=== PATIENT | female | born 1990 | race Caucasian/White ===

== ENCOUNTER 2023-03-21 18:08 | Outpatient (CLI) | payer BC ==
[2023-03-21] MEDS ORDERED: ONDANSETRON 4 MG/2 ML VIAL IVP PRN (18:22)
[2023-03-21] MEDS ORDERED: LACTATED RINGERS 1,000 ML IV SCH (18:30)
[2023-03-21 20:17] LABS: Appearance,Urine Cloudy (Clear); Bacteria,Urine Many /hpf; Bilirubin,Urine Negative (Negative); Blood,Urine Moderate (Negative); Color,Urine Yellow; Glucose,Urine (UA) Negative (Negative); Ketones,Urine Negative (Negative); Leukocyte Esterase,Urine Large (Negative); Mucus,Urine Many /hpf; Nitrite,Urine Negative (Negative); Protein,Urine 2+ (Negative); RBC,Urine >182 /hpf (0-5); Specific Gravity,Urine 1.017 (1.001-1.035); Squamous Epithelial Cell,Urine 10 /hpf (0-4); Urobilinogen,Urine <2.0 mg/dL (<2.0); WBC,Urine >182 /hpf (0-5)
[2023-03-22 02:39] VITALS: BP 109/60; PULSE 105; RESP 16; TEMP 98.2
--- NOTE | 2023-05-11 19:04 | P.MSEPDOC ---
Presenting Problems - Arrival Data Date of Arrival on Unit: 03/21/23 Time of Arrival on Unit: 18:08 Mode of Transport: Ambulatory - Complaint OB-Reason for Admission/Chief Complaint: Hyperemesis Medical History - Information : 9 Para: 3 Term: 3 : 0 Abortions: Spontaneous or Elective: 6 Number of Living Children: 3 - Gestational Age Gestational Age by MELLISSA (wks/days): 20 Weeks and 4 Days - History Comment: hyperemesis. with prior preg required pic line and hyper al until 30 weeks. Review of Systems - Review of Systems Constitutional: No problems Breast: No problems ENT: No problems Cardiovascular: No problems Respiratory: No problems Gastrointestinal: Constipation Genitourinary: No problems Musculoskeletal: No problems Neurological: No problems Skin: No problems Vital Signs - Temperature Temperature: 98.2 F Temperature Source: Oral - Pulse Right Pulse Rate: 105 Pulse Assessment Method: Automatic Cuff - Respirations Respiratory Rate: 16 Oxygen Delivery Method: Room Air O2 Sat by Pulse Oximetry: 98 - Blood Pressure Right Arm Blood Pressure: 109/60 Blood Pressure Mean: 76 Blood Pressure Source: Automatic Cuff Medical Screen Scoring - Assessment - Baby A Baseline FHR: 150 Physician Notification - Physician Notified Physician Notified Date: 03/21/23 Physician Notified Time: 18:13 Physician: Dr Brown New Order Received: Yes Maternal Triage Index - Maternal Triage Index Presenting for scheduled procedure w/no complaint: No - Stat/Priority 1 Stat Priority 1: No - Urgent/Priority 2 Urgent Priority 2: No - Prompt/Priority 3 Prompt Priority 3: No - Non-Urgent/Priority 4 Non-Urgent Priority 4: Yes Criteria Met for Priority 4: nausea vomiting Disposition - Disposition OB Disposition: Discharge to home Discharge Date: 03/21/23 Discharge Time: 21:45 I agree with the RN Medical Screening Exam: Yes Case reviewed; plan agreed upon as documented in EMR&OBIX.: Yes Diagnosis: RELATED CONDITIONS, UNSPECIFIED, SECOND TRIMESTER
== END 2023-03-21 21:45 | disposition home or self-care (01) ==
LOC: FBPOP 18:08
PROVIDERS: ATTEND Obstetrics & Gynecology Obstetrics
DX: O21.1 Hyperemesis gravidarum with metabolic disturbance (principal); Z3A.20 20 weeks gestation of pregnancy; Z88.8 Allergy status to other drugs, medicaments and biological substances
CPT/HCPCS: 99214; 96361; 96374; 81001; J2405

== ENCOUNTER 2023-07-05 13:17 | Emergency (ER) | payer BC ==
[2023-07-05] MEDS ORDERED: SODIUM CHLORIDE 0.9% 1,000 ML IV STA (13:46)
[2023-07-05 13:53] VITALS: RESP 18
--- NOTE | 2023-07-05 14:18 | ED ---
Arrhythmia/Palpitations HPI - General Chief Complaint: Arrhythmia/Palpitations Stated Complaint: Tachycardia, 35 weeks Time Seen by Provider: 07/05/23 13:41 Source: patient, RN notes reviewed, old records reviewed Mode of arrival: wheelchair Limitations: no limitations - History of Present Illness Initial Comments: This is a 32-year-old female to the emergency department for evaluation patient presents today for evaluation regards to elevated heart rate tachycardic heart rate possible arrhythmia. Patient was seen by OB and sent ER for further evaluation and management. Patient has elevated heart rate here in the ER was seen by mother baby prior to arrival. By mother baby about the emergency department today. Patient is 36 weeks MD Complaint: rapid heart beat, "heart racing", palpitations -: days(s) Context: occurred during rest, occurred during exertion Associated Symptoms: denies other symptoms Treatments Prior to Arrival: other (0) - Related Data Home Medications Medication Instructions Recorded Confirmed Acetaminophen Tab [Tylenol Tab] 500 mg PO Q6H PRN 07/05/23 07/10/23 Ferrous Sulfate [Feosol] 325 mg PO DAILY 07/05/23 07/10/23 [id number]-[id number] Acid 1 cap PO DAILY 07/05/23 07/10/23 [-U Capsule (formulary)] Allergies Allergy/AdvReac Type Severity Reaction Status Date / Time amoxicillin Allergy Rash/Hives Verified 07/10/23 11:27 metoclopramide [From Reglan] AdvReac Itching Verified 07/10/23 11:27 prochlorperazine AdvReac Itching Verified 07/10/23 11:27 [From Compazine] Review of Systems ROS Statement: Those systems with pertinent positive or pertinent negative responses have been documented in the HPI. ROS Other: All systems not noted in ROS Statement are negative. Past Medical History Past Medical History: No Reported History Additional Past Medical History / Comment(s): Hyperemesis with , PICC line clot. History of Any Multi-Drug Resistant Organisms: None Reported Past Surgical History: Cholecystectomy Past Anesthesia/Blood Transfusion Reactions: No Reported Reaction Past Psychological History: Anxiety Smoking Status: Never smoker Past Alcohol Use History: None Reported Past Drug Use History: None Reported General Exam Limitations: no limitations General appearance: alert, in no apparent distress Head exam: Present: atraumatic, normocephalic, normal inspection Eye exam: Present: normal appearance, PERRL, EOMI. Absent: scleral icterus, conjunctival injection, periorbital swelling ENT exam: Present: normal exam, mucous membranes moist Neck exam: Present: normal inspection. Absent: tenderness, meningismus, lymphadenopathy Respiratory exam: Present: normal lung sounds bilaterally. Absent: respiratory distress, wheezes, rales, rhonchi, stridor Cardiovascular Exam: Present: regular rate, normal rhythm, normal heart sounds. Absent: systolic murmur, diastolic murmur, rubs, gallop, clicks GI/Abdominal exam: Present: soft, normal bowel sounds. Absent: distended, tenderness, guarding, rebound, rigid Extremities exam: Present: normal inspection, full ROM, normal capillary refill. Absent: tenderness, pedal edema, joint swelling, calf tenderness Back exam: Present: normal inspection Neurological exam: Present: alert, oriented X3, CN II-XII intact Psychiatric exam: Present: normal affect, normal mood Skin exam: Present: warm, dry, intact, normal color. Absent: rash Course Vital Signs 07/05/23 07/05/23 07/05/23 13:32 13:35 18:35 Temperature 98.3 F 97.9 F 98.4 F Pulse Rate 101 H 98 97 Respiratory 20 18 18 Rate Blood Pressure 95/61 96/60 99/69 O2 Sat by Pulse 99 100 100 Oximetry - Reevaluation(s) Reevaluation #1: 07/05/23 15:38 Records reviewed Reevaluation #2: Patient symptoms are improving here in the ER Reevaluation #3: Patient informed of results and questions answered Reevaluation #4: 07/05/23 15:38 Was pt. sent in by a medical professional or institution (, PA, SALES AND RETAIL MANAGEMENT RECRUITER, urgent care, hospital, or snf...) When possible be specific @ -no Did you speak to anyone other than the patient for history (EMS, parent, family, police, friend...)? What history was obtained from this source @ -no Did you review nursing and triage notes (agree or disagree)? Why? @ -agree Are old charts reviewed (outside hosp., previous admission, EMS record, old EKG, old radiological studies, urgent care reports/EKG's, snf records)? Report findings @ -yes Differential Diagnosis (chest pain, altered mental status, abdominal pain women, abdominal pain men, vaginal bleeding, weakness, fever, dyspnea, syncope, headache, dizziness, GI bleed, back pain, seizure, CVA, palpatations, mental health, musculoskeletal)? @ -prior EKG interpreted by me (3pts min.). @ -yes X-rays interpreted by me (1pt min.). @ -no CT interpreted by me (1pt min.). @ -no U/S interpreted by me (1pt. min.). @ -yes What testing was considered but not performed or refused? (CT, X-rays, U/S, labs)? Why? @ -none What meds were considered but not given or refused? Why? @ -none Did you discuss the management of the patient with other professionals (professionals i.e. , PA, SALES AND RETAIL MANAGEMENT RECRUITER, lab, RT, psych nurse, protective services social worker, stock cutter, teacher, recreation officer, casework supervisor)? Give summary @ -no Was smoking cessation discussed for >3mins.? @ -no Was critical care preformed (if so, how long)? @ -no Were there social determinants of health that impacted care today? How? (Homelessness, low income, unemployed, alcoholism, drug addiction, transportation, low edu. Level, literacy, decrease access to med. care, half-way, rehab)? @ -none Was there de-escalation of care discussed even if they declined (Discuss DNR or withdrawal of care, Hospice)? DNR status @ -no What co-morbidities impacted this encounter? (DM, HTN, Smoking, COPD, CAD, Cancer, CVA, ARF, Chemo, Hep., AIDS, mental health diagnosis, sleep apnea, morbid obesity)? @ -none Was patient admitted / discharged? Hospital course, mention meds given and route, prescriptions, significant lab abnormalities, going to OR and other pertinent info. @ - 32 female to the emergency department for evaluation of tachycardia and pa lpitations. Significant anemia found here in the ER will follow-up as an outpatient for further evaluation, patient is currently 20+ weeks , will follow-up with OB on an outpatient for evaluation persistent anemia, patient feels improved here in the ER no acute distress and heart rate is improving, and patient can be discharged home Discharge Undiagnosed new problem with uncertain prognosis? @ -no Drug Therapy requiring intensive monitoring for toxicity (Heparin, Nitro, Insulin, Cardizem)? @ -no Were any procedures done? @ -no Diagnosis/symptom? @ -Anemia in Acute, or Chronic, or Acute on Chronic? @ -Acute Uncomplicated (without systemic symptoms) or Complicated (systemic symptoms)? @ -Complicated Side effects of treatment? @ -no Exacerbation, Progression, or Severe Exacerbation? @ -exacerbation Poses a threat to life or bodily function? How? (Chest pain, [place], [place], pneumonia, PE, COPD, DKA, ARF, appy, cholecystitis, CVA, Diverticulitis, Homicidal, Suicidal, threat to staff... and all critical care pts) @ -yes anemia and Reevaluation #5: 07/05/23 15:38 Differential Palpitations Ventricular arrhythmias, atrial arrhythmias, myocardial infarction, anemia, thyrotoxicosis, electrolyte imbalance, hypokalemia, pulmonary embolism, pulmonary disease, drugs, alcohol, anxiety, stress.... This is not meant to be an all-inclusive list. - Consultations Consultation #1: Spoke with patient's OB vice president of communications who recommends follow-up on an outpatient basis EKG Findings - EKG Comments: EKG Findings:: EKG is sinus 76 ID 166 QRS 83 QTc 413 - EKG Results: EKG: interpreted by [facility] Medical Decision Making - Medical Decision Making 32 female to the emergency department for evaluation of tachycardia and pal pitations. Significant anemia found here in the ER will follow-up as an outpatient for further evaluation, patient is currently 20+ weeks , will follow-up with OB on an outpatient for evaluation persistent anemia, patient feels improved here in the ER no acute distress and heart rate is improving, and patient can be discharged home - Lab Data Result diagrams: 07/05/23 14:18 07/05/23 14:18 Lab Results 07/05/23 07/05/23 07/05/23 Range/Units 14:18 14:18 14:18 WBC 6.7 (3.8-10.6) k/uL RBC 3.43 L (3.80-5.40) m/uL Hgb 8.6 L (11.4-16.0) gm/dL Hct 26.3 L (34.0-46.0) % MCV 76.8 L (80.0-100.0) fL MCH 25.2 (25.0-35.0) pg MCHC 32.8 (31.0-37.0) g/dL RDW 16.2 H (11.5-15.5) % Plt Count 132 L (150-450) k/uL MPV 9.2 Neutrophils % 70 % Lymphocytes % 22 % Monocytes % 5 % Eosinophils % 1 % Basophils % 0 % Neutrophils # 4.7 (1.3-7.7) k/uL Lymphocytes # 1.5 (1.0-4.8) k/uL Monocytes # 0.4 (0-1.0) k/uL Eosinophils # 0.1 (0-0.7) k/uL Basophils # 0.0 (0-0.2) k/uL Hypochromasia Marked Poikilocytosis Moderate Anisocytosis Slight Microcytosis Slight PT 9.6 (9.0-12.0) sec INR 0.9 (<1.2) APTT 20.1 L (22.0-30.0) sec Sodium (137-145) mmol/L Potassium (3.5-5.1) mmol/L Chloride (98-107) mmol/L Carbon Dioxide (22-30) mmol/L Anion Gap mmol/L BUN (7-17) mg/dL Creatinine (0.52-1.04) mg/dL Est GFR (CKD-EPI)AfAm (>60 ml/min/1.73 sqM) Est GFR (CKD-EPI)NonAf (>60 ml/min/1.73 sqM) Glucose (74-99) mg/dL Calcium (8.4-10.2) mg/dL Phosphorus (2.5-4.5) mg/dL Magnesium (1.6-2.3) mg/dL Total Bilirubin (0.2-1.3) mg/dL AST (14-36) U/L ALT (4-34) U/L Alkaline Phosphatase (38-126) U/L Troponin I (0.000-0.034) ng/mL NT-Pro-B Natriuret Pep pg/mL Total Protein (6.3-8.2) g/dL Albumin (3.5-5.0) g/dL TSH (0.465-4.680) mIU/L Urine Color Yellow Urine Appearance Cloudy H (Clear) Urine pH 6.5 (5.0-8.0) Ur Specific [place] 1.012 (1.001-1.035) Urine Protein Negative (Negative) Urine Glucose (UA) Negative (Negative) Urine Ketones Negative (Negative) Urine Blood Negative (Negative) Urine Nitrite Negative (Negative) Urine Bilirubin Negative (Negative) Urine Urobilinogen <2.0 (<2.0) mg/dL Ur Leukocyte Esterase Large H (Negative) Urine RBC <1 (0-5) /hpf Urine WBC 1 (0-5) /hpf Ur Squamous Epith Cells 7 H (0-4) /hpf Urine Bacteria Occasional H (None) /hpf Urine Mucus Rare H (None) /hpf Influenza Type A (PCR) (Not Detectd) Influenza Type B (PCR) (Not Detectd) RSV (PCR) (Not Detectd) SARS-CoV-2 (PCR) (Not Detectd) 07/05/23 07/05/23 07/05/23 Range/Units 14:18 14:18 14:50 WBC (3.8-10.6) k/uL RBC (3.80-5.40) m/uL Hgb (11.4-16.0) gm/dL Hct (34.0-46.0) % MCV (80.0-100.0) fL MCH (25.0-35.0) pg MCHC (31.0-37.0) g/dL RDW (11.5-15.5) % Plt Count (150-450) k/uL MPV Neutrophils % % Lymphocytes % % Monocytes % % Eosinophils % % Basophils % % Neutrophils # (1.3-7.7) k/uL Lymphocytes # (1.0-4.8) k/uL Monocytes # (0-1.0) k/uL Eosinophils # (0-0.7) k/uL Basophils # (0-0.2) k/uL Hypochromasia Poikilocytosis Anisocytosis Microcytosis PT (9.0-12.0) sec INR (<1.2) APTT (22.0-30.0) sec Sodium 133 L (137-145) mmol/L Potassium 3.2 L (3.5-5.1) mmol/L Chloride 109 H (98-107) mmol/L Carbon Dioxide 18 L (22-30) mmol/L Anion Gap 6 mmol/L BUN 4 L (7-17) mg/dL Creatinine 0.33 L (0.52-1.04) mg/dL Est GFR (CKD-EPI)AfAm >90 (>60 ml/min/1.73 sqM) Est GFR (CKD-EPI)NonAf >90 (>60 ml/min/1.73 sqM) Glucose 77 (74-99) mg/dL Calcium 7.3 L (8.4-10.2) mg/dL Phosphorus 3.6 (2.5-4.5) mg/dL Magnesium 1.5 L (1.6-2.3) mg/dL Total Bilirubin 0.4 (0.2-1.3) mg/dL AST 22 (14-36) U/L ALT 11 (4-34) U/L Alkaline Phosphatase 109 (38-126) U/L Troponin I <0.012 (0.000-0.034) ng/mL NT-Pro-B Natriuret Pep 36 pg/mL Total Protein 5.4 L (6.3-8.2) g/dL Albumin 2.6 L (3.5-5.0) g/dL TSH 2.500 (0.465-4.680) mIU/L Urine Color Urine Appearance (Clear) Urine pH (5.0-8.0) Ur Specific [place] (1.001-1.035) Urine Protein (Negative) Urine Glucose (UA) (Negative) Urine Ketones (Negative) Urine Blood (Negative) Urine Nitrite (Negative) Urine Bilirubin (Negative) Urine Urobilinogen (<2.0) mg/dL Ur Leukocyte Esterase (Negative) Urine RBC (0-5) /hpf Urine WBC (0-5) /hpf Ur Squamous Epith Cells (0-4) /hpf Urine Bacteria (None) /hpf Urine Mucus (None) /hpf Influenza Type A (PCR) Not Detected (Not Detectd) Influenza Type B (PCR) Not Detected (Not Detectd) RSV (PCR) Not Detected (Not Detectd) SARS-CoV-2 (PCR) Not Detected (Not Detectd) - EKG Data -: EKG Interpreted by Me - Radiology Data Radiology results: report reviewed ([facility] OB pelvis is negative for acute disease), image reviewed Disposition Clinical Impression: Palpitations, Anemia, Anxiety, Disposition: HOME SELF-CARE Condition: Fair Instructions (If sedation given, give patient instructions): Anemia (ED) Is patient prescribed a controlled substance at d/c from ED?: No Referrals: None,Stated [Primary Care Provider] - 1-2 days Time of Disposition: 17:00
[2023-07-05 15:02] LABS: Anisocytosis Slight; Basophils % (A) 0 %; Eosinophils # (A) 0.1 k/uL (0-0.7); Eosinophils % (A) 1 %; HCT 26.3 % (34.0-46.0); HGB 8.6 gm/dL (11.4-16.0); Hypochromasia Marked; Lymphocytes # (A) 1.5 k/uL (1.0-4.8); Lymphocytes % (A) 22 %; MCH 25.2 pg (25.0-35.0); MCHC 32.8 g/dL (31.0-37.0); MCV 76.8 fL (80.0-100.0); Mean Platelet Volume 9.2; Microcytosis Slight; Monocytes # (A) 0.4 k/uL (0-1.0); Monocytes % (A) 5 %; Neutrophils # (A) 4.7 k/uL (1.3-7.7); Neutrophils % (A) 70 %; Platelet Count 132 k/uL (150-450); Poikilocytosis Moderate; RBC 3.43 m/uL (3.80-5.40); RDW 16.2 % (11.5-15.5); WBC 6.7 k/uL (3.8-10.6)
[2023-07-05 15:06] LABS: INR 0.9 (<1.2); Prothrombin Time 9.6 sec (9.0-12.0)
[2023-07-05 15:12] LABS: Partial Thromboplastin Time 20.1 sec (22.0-30.0)
[2023-07-05 15:46] LABS: ALT 11 U/L (4-34); AST 22 U/L (14-36); African American GFR (CKD) >90 (>60 ml/min/1.73 sqM); Albumin 2.6 g/dL (3.5-5.0); Alkaline Phosphatase 109 U/L (38-126); Anion Gap 6 mmol/L; Blood Urea Nitrogen 4 mg/dL (7-17); Calcium 7.3 mg/dL (8.4-10.2); Carbon Dioxide 18 mmol/L (22-30); Chloride 109 mmol/L (98-107); Glucose 77 mg/dL (74-99); Magnesium 1.5 mg/dL (1.6-2.3); Non-African American GFR(CKD) >90 (>60 ml/min/1.73 sqM); Phosphorus 3.6 mg/dL (2.5-4.5); Potassium 3.2 mmol/L (3.5-5.1); Sodium 133 mmol/L (137-145); Total Bilirubin 0.4 mg/dL (0.2-1.3); Total Protein 5.4 g/dL (6.3-8.2)
[2023-07-05 15:54] LABS: Appearance,Urine Cloudy (Clear); Bacteria,Urine Occasional /hpf; Bilirubin,Urine Negative (Negative); Blood,Urine Negative (Negative); Color,Urine Yellow; Glucose,Urine (UA) Negative (Negative); Ketones,Urine Negative (Negative); Leukocyte Esterase,Urine Large (Negative); Mucus,Urine Rare /hpf; Nitrite,Urine Negative (Negative); PH, Urine 6.5 (5.0-8.0); Protein,Urine Negative (Negative); RBC,Urine <1 /hpf (0-5); Specific Gravity,Urine 1.012 (1.001-1.035); Squamous Epithelial Cell,Urine 7 /hpf (0-4); Urobilinogen,Urine <2.0 mg/dL (<2.0); WBC,Urine 1 /hpf (0-5)
[2023-07-05 15:55] LABS: NT-Pro-B-Type Natriuretic Pept 36 pg/mL
[2023-07-05] MEDS ORDERED: POTASSIUM BICARBONATE/CIT AC 20 MEQ TABLET.EFF PO STA (17:03)
[2023-07-05] MEDS ORDERED: MAGNESIUM OXIDE 400 MG TAB PO STA ×2 (17:03)
--- NOTE | 2023-07-05 17:15 | US ---
EXAMINATION TYPE: US OB >= 14 wk fetus DATE OF EXAM: 07/05/2023 COMPARISON: None CLINICAL INDICATION: Female, 32 years old with history of pain; low hemoglobin TECHNIQUE: Transabdominal (TA) GESTATIONAL AGE / DATING Physician Established: (35 weeks/4 days) EDC: 08/05/2023 Dates by LMP: (35 weeks/4 days) EDC: 08/05/2023 Dates by First Scan: No previous this is first scan Dates by Current Scan: (36 weeks/2 days) EDC: 07/31/2023 SURVEY IUP: Single PLACENTA: Fundal PREVIA: No Previa ION: 14.88 cm Normal CERVICAL LENGTH (transabdominal: norm > 3.0cm): 3.9 cm BIOMETRY PRESENTATION: Vertex LIE: Longitudinal BPD: 9.34 cm 38 weeks / 0 days HC: 32.82 cm 37 weeks / 2 days AC: 30.67 cm 34 weeks / 4 days FL: 7.09 cm 36 weeks / 2 days ESTIMATED WEIGHT IN GRAMS: 2748 grams ESTIMATED WEIGHT IN LBS/OZ: 6 lbs. 1 oz. WEIGHT PERCENTAGE BASED ON ESTABLISHED DATES: 53.2% HC/AC: 1.1 Normal FL/AC: 23.12 Normal HEART RATE: 129 bpm RHYTHM: Normal IMPRESSION: 1. Estimated weight of 2748 g based on current measurements. This is within the 53rd percentile . 2. Cardiac activity measures 129 bpm. 3. Estimated age based on current ultrasound measurements is 36 weeks 2 days gestation. Correla te this with the physician established dating of 35 weeks 4 days.
[2023-07-05] MEDS ORDERED: POTASSIUM BICARBONATE/CIT AC 20 MEQ TABLET.EFF PO ONE (18:00)
[2023-07-05 18:44] VITALS: BP 99/69; PULSE 97; TEMP 98.4
== END 2023-07-05 18:44 | disposition home or self-care (01) ==
LOC: EC 13:17
DX: O99.013 Anemia complicating pregnancy, third trimester (principal); O99.343 Other mental disorders complicating pregnancy, third trimester; D64.9 Anemia, unspecified; R00.2 Palpitations; F41.9 Anxiety disorder, unspecified; Z88.8 Allergy status to other drugs, medicaments and biological substances; Z88.0 Allergy status to penicillin; Z20.822 Contact with and (suspected) exposure to COVID-19; Z3A.36 36 weeks gestation of pregnancy
CPT/HCPCS: 36415; 76805; 80053; 81001; 83735; 83880; 84100; 84443; 84484; 85025; 85610; 85730; 87636; 93005; 96360; 99285

== ENCOUNTER 2023-08-03 05:53 | Inpatient (IN) | payer BC ==
[2023-08-03] MEDS ORDERED: TRANEXAMIC 1,000 MG/100ML-NACL 1,000 MG in EMPTY BAG 1 BAG IV PRN (06:09)
[2023-08-03] MEDS ORDERED: METHYLERGONOVINE 0.2 MG/ML 1 ML AMP IM PRN (06:09)
[2023-08-03] MEDS ORDERED: TERBUTALINE 1 MG/ML VIAL SQ PRN (06:09)
[2023-08-03] MEDS ORDERED: miSOPROStoL 200 MCG TAB PO PRN (06:09)
[2023-08-03] MEDS ORDERED: LIDOCAINE 0.5% (PF) 5 MG/ML (50 ML SDV) SQ PRN (06:09)
[2023-08-03] MEDS ORDERED: OXYTOCIN 10 UNIT/ML 1 ML VIAL IM PRN (06:09)
[2023-08-03] MEDS: LACTATED RINGERS 1,000 ML IV SCH ×2 (06:09→11:11)
[2023-08-03] MEDS ORDERED: CARBOPROST TROMETHAMINE 250 MCG/ML 1 ML AMP IM PRN (06:09)
[2023-08-03] MEDS ORDERED: OXYTOCIN 30 UNITS/500 ML NS 30 UNIT in SALINE 1 500ML.BAG IV SCH ×2 (06:15→13:45)
[2023-08-03 06:23] LABS: Anisocytosis Slight; Basophils % (A) 0 %; Eosinophils # (A) 0.1 k/uL (0-0.7); Eosinophils % (A) 1 %; HCT 32.7 % (34.0-46.0); HGB 10.3 gm/dL (11.4-16.0); Hypochromasia Marked; Lymphocytes % (A) 23 %; MCHC 31.5 g/dL (31.0-37.0); MCV 76.4 fL (80.0-100.0); Mean Platelet Volume 8.8; Microcytosis Slight; Monocytes # (A) 0.4 k/uL (0-1.0); Monocytes % (A) 5 %; Neutrophils # (A) 5.8 k/uL (1.3-7.7); Neutrophils % (A) 69 %; Platelet Count 227 k/uL (150-450); Poikilocytosis Slight; RBC 4.28 m/uL (3.80-5.40); RDW 18.2 % (11.5-15.5); WBC 8.4 k/uL (3.8-10.6)
--- NOTE | 2023-08-03 08:47 | P.HPOB ---
History of Present Illness H&P Date: 08/03/23 Chief Complaint: Elective induction of labor Ms. Mireles is a 32 year old at 40 weeks and 0 days with EDC of 08/03/2023 by LMP consistent with 20 week US who presents for induction of labor for post-dates. The was complicated by hyperemesis gravidarum. In a p rior , the patient required a PICC line (2016) for IV hydration and had a deep vein thrombus in proximal shoulder. For that , she was on lovenox. The has been otherwise uncomplicated. Obstetric history: 3 full-term vaginal deliveries, no complications. 6 SABs. Maternal serologies: blood type A positive, antibody negative, rubella immune, VDRL non-reactive, HBsAg negative, HIV negative, gonorrhea negative, chlamydia negative, 1 hour GTT within normal limits, GBS negative. Past medical history: upper extremity provoked DVT (as above) Surgical history: Cholecystectomy Past Medical History Past Medical History: No Reported History Additional Past Medical History / Comment(s): Hyperemesis with , PICC line clot. History of Any Multi-Drug Resistant Organisms: None Reported Past Surgical History: Cholecystectomy Past Anesthesia/Blood Transfusion Reactions: No Reported Reaction Past Psychological History: Anxiety Smoking Status: Never smoker Past Alcohol Use History: None Reported Past Drug Use History: None Reported - Past Family History Mother Family Medical History: No Reported History Medications and Allergies Home Medications Medication Instructions Recorded Confirmed Type Osl-[id number]-Fmckv Acid 1 cap PO DAILY 07/05/23 07/10/23 History [-U Capsule (formulary)] Allergies Allergy/AdvReac Type Severity Reaction Status Date / Time amoxicillin Allergy Rash/Hives Verified 08/03/23 06:08 metoclopramide [From Reglan] AdvReac Itching Verified 08/03/23 06:08 prochlorperazine AdvReac Itching Verified 08/03/23 06:08 [From Compazine] Exam Intake and Output 08/02/23 08/03/23 08/03/23 22:59 06:59 14:59 Other: # Voids 1 Weight 58.06 kg 58.06 kg [place] physical exam is performed. The patient is a healthy-appearing in no apparent distress. Breathing is non-labored. Abdomen is gravid and non- tender. Cervical exam is 3 cm, 70% effaced, -3 station. AROM is undertaken revealing clear fluid. Extremities are non-tender and non-edematous. heart tones are reassuring and reactive. Of note there was a period upon arrival minimal variability and a wandering baseline upon arrival that has now resolved. Tocometer is not graphing any contractions at this time. Results Result Diagrams: 08/03/23 06:10 Abnormal Lab Results - Last 24 Hours (Table) 08/03/23 Range/Units 06:10 Hgb 10.3 L (11.4-16.0) gm/dL Hct 32.7 L (34.0-46.0) % MCV 76.4 L (80.0-100.0) fL MCH 24.0 L (25.0-35.0) pg RDW 18.2 H (11.5-15.5) % Assessment and Plan Assessment: 32 year old at 40 weeks presenting for induction of labor Plan: Admit, NPO, mIVF, pitocin per protocol, s/p AROM, epidural prn, continuous EFM and tocometer, close monitoring of patient. Time with Patient: Less than 30
[2023-08-03] MEDS ORDERED: SODIUM CHLORIDE 0.9% 250 ML BAG ONE (12:13)
[2023-08-03] MEDS ORDERED: ROPIVACAINE 5 MG/ML 30 ML VIAL ONE (12:13)
[2023-08-03] MEDS ORDERED: fentaNYL (PF) 50 MCG/ML 5 ML AMP ONE (12:13)
--- NOTE | 2023-08-03 13:33 | P.PROBDLV ---
Vaginal Delivery Note - . Vaginal Delivery Note: DATE OF SERVICE: 08/03/2023 PROCEDURE: Vacuum Assisted Vaginal Delivery with Hemorrhage ATTENDING: Dr. Patricia Rob MD ESTIMATED BLOOD LOSS: 500 mL FINDINGS: VFI, Apgars 9/9. Weight still pending at the time of this dictation. PROCEDURE: Ms. Mireles is a 32 year old at 40 weeks presenting to labor and delivery for induction of labor for post-dates. The has been complicated by hyperemesis gravidarum. For further details, please review the admitting H&P. Pitocin was started per protocol. AROM was undertaken at 823 revealing clear fluid. The patient received epidural anesthesia per her request. The patient was completely dilated at 1237. The patient pushed effectively, however there were deep variable decelerations to the 70s with every contraction. Because of this, a vacuum assisted vaginal delivery was recommended to the patient. The risks of advanced degree laceration, scalp hematoma, and intracranial hematoma were discussed with the patient. The patient agreed to proceed. vacuum delivery for the baby. The head was at +3 station. The vacuum was placed and the correct placement in front of the posterior fontanelle was confirmed digitally. With the patient's next contraction, the vacuum was inflated and a gentle downward pressure was used to assist with brining the baby's head to a +3 station. The head was +4 station and the vacuum was removed. The head was delivered without difficulty over an intact perineum. There was no nuchal cord. Shoulders followed by body were delivered without difficulty. A viable female was fully delivered at 1316. The baby's mouth and nose were bulb suctioned. The cord was clamped x2 and cut. The infant was placed on maternal abdomen. Placenta was delivered whole with gentle cord traction at 1319. Oxytocin was started to facilitate uterine tone. Uterine fundus was found to be firm and below the umbilicus upon fundal massage. However, bleeding was brisk. The decision was made to give 0.2 mg of IM Methergine. After administration, bleeding was minimal and fundus was firm. Thorough examination of the cervix, vagina, periurethral area, and perineum revealed no lacerations. The patient is stable and allowed to begin the bonding process. Patient stable .
[2023-08-03] MEDS ORDERED: ZOLPIDEM 5 MG TAB PO PRN (13:34)
[2023-08-03] MEDS ORDERED: BENZOCAINE/MENTHOL SPRAY 1 GM/SPRAY AEROSOL TOPICAL PRN (13:34)
[2023-08-03] MEDS ORDERED: SIMETHICONE 80 MG CHEWABLE PO PRN (13:34)
[2023-08-03] MEDS ORDERED: HYDROCORTISONE 2.5% RECTAL CREAM 30 GM TUBE RECTAL PRN (13:34)
[2023-08-03] MEDS ORDERED: diphenhydrAMINE 50 MG/ML 1 ML VIAL IVP PRN ×2 (13:34)
[2023-08-03] MEDS ORDERED: diphenhydrAMINE 50 MG CAP PO PRN (13:34)
[2023-08-03] MEDS ORDERED: LANOLIN CREAM 5 GM TUBE TOPICAL PRN (13:34)
[2023-08-03] MEDS ORDERED: diphenhydrAMINE 25 MG CAP PO PRN (13:34)
[2023-08-03 16:09] VITALS: RESP 16
[2023-08-03] MEDS: IBUPROFEN 600 MG TAB PO PRN (19:26)
[2023-08-03] MEDS: ACETAMINOPHEN TAB 325 MG TAB PO PRN (23:53)
[2023-08-04] MEDS: IBUPROFEN 600 MG TAB PO PRN ×2 (04:37→12:09)
[2023-08-04 05:57] LABS: Anisocytosis Slight; Basophils % (A) 0 %; Eosinophils # (A) 0.1 k/uL (0-0.7); Eosinophils % (A) 1 %; HCT 29.3 % (34.0-46.0); HGB 9.1 gm/dL (11.4-16.0); Hypochromasia Moderate; Lymphocytes % (A) 19 %; MCH 23.7 pg (25.0-35.0); MCV 76.4 fL (80.0-100.0); Mean Platelet Volume 8.2; Microcytosis Slight; Monocytes # (A) 0.7 k/uL (0-1.0); Monocytes % (A) 7 %; Neutrophils # (A) 7.5 k/uL (1.3-7.7); Neutrophils % (A) 72 %; Platelet Count 201 k/uL (150-450); Poikilocytosis Slight; RBC 3.84 m/uL (3.80-5.40); RDW 18.1 % (11.5-15.5); WBC 10.3 k/uL (3.8-10.6)
[2023-08-04 08:05] VITALS: BP 93/56; PULSE 89; TEMP 98.3
[2023-08-04] MEDS: ACETAMINOPHEN TAB 325 MG TAB PO PRN (08:07)
[2023-08-04] MEDS: SENNOSIDES-DOCUSATE SODIUM 1 EACH TAB PO SCH ×2 (08:07→12:10)
--- NOTE | 2023-08-07 15:40 | CDI ---
Documentation Clarification Form Date: 08/07/2023 03:26:12 PM From: Chata Crews Admit Date: 08/03/2023 05:53:00 AM Patient Name: Sarahi Mireles Visit Number: [id number] Discharge Date: 08/04/2023 02:15:00 PM ATTENTION: The Clinical Documentation Specialists (CDI) and [facility] Coding Staff appreciate your assistance in clarifying documentation. Please respond to the clarification below the line at the bottom and electronically sign. The CDI & [facility] Coding staff will review the response and follow-up if needed. Please note: Queries are made part of the Legal Health Record. If you have any questions, please contact the author of this message via ITS. Dr. Patricia Rob Your patient has a hemoglobin/hematocrit level of 10.3 and 32.7 on 08/03/23, and 9.1 and 29.3 on 08/04. Please clarify if there is an additional diagnosis and/or clinical significance related to these lab values. History/Risk Factors: patient is a 32 year old who presented for induction of labor for post dates Clinical indicators: patient underwent induction of labor with Pitocin and AROM. She received an epidural, and was completely dilated. Patient pushed effectively, however there were deep variable decelerations, so a vacuum assisted vaginal delivery was performed. Oxytocin was started to facilitate uterine tone, however brisk bleeding was encountered. 0.2 mg of IM Methergine was administered. She was diagnosed with hemorrhage. Treatment: oxytocin, 0.2 mg of IM methergine Is there an additional diagnosis and/or clinical significance related to the above lab result/information: [ X] Acute blood loss anemia [ ] Acute on chronic blood loss anemia [ ] No additional diagnosis/Not clinically significant [ ] Unable to determine [ X] Other, please specify: hemorrhage MTDD
--- NOTE | 2023-08-08 20:23 | P.DS ---
Providers Date of admission: 08/03/23 05:53 Expected date of discharge: 08/04/23 Attending physician: Patricia Rob MD Primary care physician: Stated None Hospital Course: This is a 32 year old now PPD#1 s/p normal vaginal delivery. She is doing well this morning and desires discharge home. The patient is doing well this morning and had no acute events overnight. She has no complaints this morning. She reports minimal lochia, passing flatus, voiding without difficulty, ambulating, and eating/drinking without nausea or vomiting. Infant doing well at bedside, nursing well. She denies chest pain, shortness of breathing, fevers, or chills overnight. She denies pain or swelling in the legs. restrictions are reviewed with the patient including pelvic rest for 6 weeks. The patient is encouraged to call the office if she experiences any heavy bleeding, foul-smelling discharge, breast complaints, or any if she has any other concerns. She will follow up in the office with Dr. Merrill in 6 weeks for exam. All questions are answered. Assessment: 32 year old now PPD#1 s/p normal vaginal delivery Patient Condition at Discharge: Good Plan - Discharge Summary New Discharge Prescriptions: No Action Xvy-Hndn-Nxlal Acid [-U Capsule (formulary)] 1 cap PO DAILY Discharge Medication List Dfk-Stmc-Ezvzo Acid [-U Capsule (formulary)] 1 cap PO DAILY 07/05/23 [History]
== END 2023-08-04 14:15 | disposition home or self-care (01) | DRG 806 ==
LOC: 4FBP 05:53
PROVIDERS: ADMIT Obstetrics & Gynecology; ATTEND Obstetrics & Gynecology
PROC: 10907ZC Drainage of Amniotic Fluid, Therapeutic from Products of Conception, Via Natural or Artificial Opening (ICD-10-PCS; principal; 2023-08-03)
PROC: 10D07Z6 Extraction of Products of Conception, Vacuum, Via Natural or Artificial Opening (ICD-10-PCS; principal; 2023-08-03)
PROC: 3E033VJ Introduction of Other Hormone into Peripheral Vein, Percutaneous Approach (ICD-10-PCS; principal; 2023-08-03)
DX: O48.0 Post-term pregnancy (principal); D62 Acute posthemorrhagic anemia; O72.1 Other immediate postpartum hemorrhage; O21.0 Mild hyperemesis gravidarum; O99.02 Anemia complicating childbirth; O99.344 Other mental disorders complicating childbirth; O76 Abnormality in fetal heart rate and rhythm complicating labor and delivery; F41.9 Anxiety disorder, unspecified; Z86.718 Personal history of other venous thrombosis and embolism; Z88.0 Allergy status to penicillin; Z88.8 Allergy status to other drugs, medicaments and biological substances; Z88.6 Allergy status to analgesic agent; Z28.310 Unvaccinated for COVID-19; Z3A.40 40 weeks gestation of pregnancy; Z37.0 Single live birth
CPT/HCPCS: 85025; 86850; 86900; 86901

== ENCOUNTER 2025-02-24 06:00 | Inpatient (IN) | payer BC ==
[2025-02-24] MEDS ORDERED: LIDOCAINE 0.5% (PF) 5 MG/ML (50 ML SDV) SQ PRN (06:18)
[2025-02-24] MEDS ORDERED: OXYTOCIN 10 UNIT/ML 1 ML VIAL IM PRN (06:18)
[2025-02-24] MEDS ORDERED: miSOPROStoL 200 MCG TAB RECTAL PRN (06:18)
[2025-02-24] MEDS ORDERED: CARBOPROST TROMETHAMINE 250 MCG/ML 1 ML AMP IM PRN (06:18)
[2025-02-24] MEDS ORDERED: miSOPROStoL 200 MCG TAB PO PRN (06:18)
[2025-02-24] MEDS ORDERED: TRANEXAMIC 1,000 MG/100ML-NACL 1,000 MG in EMPTY BAG 1 BAG IV PRN (06:18)
[2025-02-24] MEDS ORDERED: TERBUTALINE 1 MG/ML VIAL SQ PRN (06:18)
[2025-02-24] MEDS ORDERED: METHYLERGONOVINE 0.2 MG/ML 1 ML AMP IM PRN (06:18)
[2025-02-24] MEDS: OXYTOCIN 30 UNITS/500 ML NS 30 UNIT in SALINE 1 500ML.BAG IV SCH (06:48)
[2025-02-24] MEDS: LACTATED RINGERS 1,000 ML IV SCH (06:48)
[2025-02-24 07:25] LABS: Anisocytosis Slight; Basophils % (A) 0 %; Eosinophils # (A) 0.1 k/uL (0-0.7); Eosinophils % (A) 1 %; HCT 31.3 % (34.0-46.0); HGB 9.7 gm/dL (11.4-16.0); Hypochromasia Marked; Lymphocytes # (A) 1.6 k/uL (1.0-4.8); Lymphocytes % (A) 16 %; MCV 74.4 fL (80.0-100.0); Mean Platelet Volume 7.9; Microcytosis Slight; Monocytes # (A) 0.5 k/uL (0-1.0); Monocytes % (A) 5 %; Neutrophils # (A) 7.8 k/uL (1.3-7.7); Neutrophils % (A) 77 %; Platelet Count 223 k/uL (150-450); Poikilocytosis Slight; RBC 4.21 m/uL (3.80-5.40); RDW 17.1 % (11.5-15.5); WBC 10.1 k/uL (3.8-10.6)
[2025-02-24] MEDS ORDERED: BUTORPHANOL 1 MG/ML 1 ML VIAL IV PRN (09:34)
--- NOTE | 2025-02-24 09:38 | P.HPOB ---
History of Present Illness H&P Date: 02/24/25 Chief Complaint: 39 and 1 sevenths weeks, elective induction Patient is a 34-year-old 11 para 4-0-6-4 admitted at 39 and 1 sevenths weeks as established by last menstrual period and confirmed by 9-week ultrasound. She is admitted for elective induction of labor with all signs reassuring, category 1 heart rate tracing. Her has been uncomplicated and group B strep status is negative. Obstetrical history: 11 para 4-0-6-4 with 4 term vaginal deliveries without complications though she did have hemorrhage following her last delivery. Current statistics are listed in history of present illness. EDC of 03/02/2025 was established by last menstrual period and confirmed by 9-week ultrasound. Laboratory workup demonstrates a blood type of A+ with a negative antibody screen. Rubella status is immune. The remainder of the laboratory workup was within normal limits. 1 hour Glucola and second trimester Glucola were both within normal limits. Group B strep status is negative. Gynecologic history: Unremarkable with no history of any infections to include STDs. Review of Systems Review of systems is confined to history of present illness. Past Medical History Past Medical History: No Reported History Additional Past Medical History / Comment(s): Hyperemesis with , PICC line clot. History of Any Multi-Drug Resistant Organisms: None Reported Past Surgical History: Cholecystectomy Past Anesthesia/Blood Transfusion Reactions: No Reported Reaction Past Psychological History: Anxiety Smoking Status: Never smoker Past Alcohol Use History: None Reported Past Drug Use History: None Reported - Past Family History Mother Family Medical History: No Reported History Medications and Allergies Allergies Allergy/AdvReac Type Severity Reaction Status Date / Time amoxicillin Allergy Rash/Hives Verified 09/28/24 13:52 metoclopramide [From Reglan] AdvReac Itching Verified 09/28/24 13:52 prochlorperazine AdvReac Itching Verified 09/28/24 13:52 [From Compazine] Exam Vital Signs Temp Pulse Resp BP Pulse Ox 02/24/25 06:16 96.7 F L 111 H 16 111/69 98 Intake and Output 02/23/25 02/24/25 02/24/25 22:59 06:59 14:59 Other: Weight 77.111 kg In general, this is a well-developed, well-nourished white female in no acute distress. Her heart has regular rhythm and rate without murmur. Her lungs clear to auscultation bilaterally in all saldana. Her abdomen is gravid, nondistended, has normal active bowel sounds, soft, nontender, and without any palpable masses aside from the uterine fundus. Her extremities are without any cyanosis, clubbing, or significant edema and are nontender to palpation bilaterally. Digital cervical examination demonstrates her cervix to be 3+ centimeters dilated, 50% effaced, with the vertex in presentation at -2 station. Artificial rupture of membranes is carried out demonstrating clear fluid. Results Result Diagrams: 02/24/25 06:18 Abnormal Lab Results - Last 24 Hours (Table) 02/24/25 Range/Units 06:18 Hgb 9.7 L (11.4-16.0) gm/dL Hct 31.3 L (34.0-46.0) % MCV 74.4 L (80.0-100.0) fL MCH 23.0 L (25.0-35.0) pg RDW 17.1 H (11.5-15.5) % Neutrophils # 7.8 H (1.3-7.7) k/uL Assessment and Plan (1) Term Current Visit: Yes Status: Acute Code(s): Z34.90 - ENCNTR FOR SUPRVSN OF NORMAL , UNSP, UNSP TRIMESTER SNOMED Code(s): 63377187 Plan: Patient has been admitted for elective induction of labor. Pitocin augmentation has been started and she has undergone artificial rupture of membranes. She will have close maternal and surveillance and expectant management will be practiced. She is a good candidate for either IV or epidural analgesia, whichever she may choose.
[2025-02-24] MEDS ORDERED: ROPIVACAINE 5 MG/ML 30 ML VIAL ONE (10:28)
[2025-02-24] MEDS ORDERED: fentaNYL (PF) 50 MCG/ML 5 ML AMP ONE (10:28)
[2025-02-24] MEDS ORDERED: SODIUM CHLORIDE 0.9% 250 ML BAG ONE (10:28)
[2025-02-24] MEDS ORDERED: diphenhydrAMINE 25 MG CAP PO PRN (13:34)
[2025-02-24] MEDS ORDERED: ZOLPIDEM 5 MG TAB PO PRN (13:34)
[2025-02-24] MEDS ORDERED: LANOLIN CREAM 1 GM TUBE TOPICAL PRN (13:34)
[2025-02-24] MEDS ORDERED: diphenhydrAMINE 50 MG CAP PO PRN (13:34)
[2025-02-24] MEDS ORDERED: diphenhydrAMINE 50 MG/ML 1 ML VIAL IVP PRN (13:34)
[2025-02-24] MEDS ORDERED: HYDROCORTISONE 2.5% RECTAL CREAM 30 GM TUBE RECTAL PRN (13:34)
[2025-02-24] MEDS ORDERED: SIMETHICONE 80 MG CHEWABLE PO PRN (13:34)
--- NOTE | 2025-02-24 13:38 | P.PROBDLV ---
Vaginal Delivery Note - . Vaginal Delivery Note: The patient is a 34-year-old 11 para 4-0-6-4 admitted at 39 and 1 sevenths weeks by good dating parameters. She is admitted for elective induction of labor with all signs reassuring, category 1 heart rate tracing. Her has been entirely uncomplicated and group B strep status is negative. On labor and delivery, she had Pitocin started followed by artificial rupture of membranes. She made progress to the active phase of labor and had an epidural catheter placed for analgesia. She progressed through the active phase of labor relatively quickly to complete and then pushed over the course of approximately 3-4 contractions to a normal spontaneous vaginal delivery of a viable 7 pound 6 ounce baby boy with Apgars of 9 at 1 minute and 9 at 5 minutes delivered in the right occiput anterior position. There was a loose nuchal cord x 1 which was reduced on the perineum. The placenta was delivered spontaneously, intact, grossly normal with a grossly normal, centrally inserted three-vessel cord. There were no significant lacerations of perineum, vagina, or cervix. Estimated blood loss for the case was approximately 150 mL. There were no complications. All sponge, instrument, and needle counts were correct. Both mother and infant are resting comfortably in recovery.
[2025-02-24] MEDS: BENZOCAINE/MENTHOL SPRAY 1 GM/SPRAY AEROSOL TOPICAL PRN (13:41)
[2025-02-24] MEDS ORDERED: OXYTOCIN 30 UNITS/500 ML NS 30 UNIT in SALINE 1 500ML.BAG IV SCH (13:45)
[2025-02-24] MEDS: diphenhydrAMINE 50 MG/ML 1 ML VIAL IVP PRN (14:41)
[2025-02-24] MEDS: IBUPROFEN 800 MG TAB PO PRN (14:41)
[2025-02-24] MEDS: SENNOSIDES-DOCUSATE SODIUM 1 EACH TAB PO SCH (19:45)
[2025-02-24] MEDS: ACETAMINOPHEN TAB 500 MG TAB PO PRN (19:45)
[2025-02-25 06:15] LABS: Basophils # (A) 0.02 10*3/uL (0.00-0.10); Basophils % (A) 0.2 %; Eosinophils # (A) 0.07 10*3/uL (0.04-0.35); Eosinophils % (A) 0.7 %; HCT 28.3 % (37.2-46.3); HGB 8.7 g/dL (12.0-15.0); Lymphocytes # (A) 2.38 10*3/uL (0.90-5.00); Lymphocytes % (A) 25.4 %; MCH 23.3 pg (27.0-32.0); MCHC 30.7 g/dL (32.0-37.0); MCV 75.9 fL (80.0-97.0); Mean Platelet Volume 10.3 fL (9.5-12.2); Monocytes # (A) 0.57 10*3/uL (0.20-1.00); Monocytes % (A) 6.1 %; Neutrophils # (A) 6.25 10*3/uL (1.80-7.70); Neutrophils % (A) 66.9 %; Platelet Count 186 10*3/uL (140-440); RBC 3.73 10*6/uL (4.10-5.20); RDW 16.6 % (11.5-14.5); WBC 9.36 10*3/uL (4.50-10.00)
--- NOTE | 2025-02-25 08:41 | P.DS ---
Providers Date of admission: 02/24/25 06:10 Expected date of discharge: 02/25/25 Attending physician: Dale Merrill Primary care physician: Stated None - Discharge Diagnosis(es) (1) Term Current Visit: Yes Status: Acute (2) Normal vaginal delivery Current Visit: Yes Status: Acute Hospital Course: Patient is a 34-year-old 11 para 4-0-6-4 admitted at 39 and 1 sevenths weeks by good dating parameters. She is admitted for an elective induction with all signs reassuring, category 1 heart rate tracing. Her was uncomplicated and group B strep status is negative. On labor and delivery, she had Pitocin started followed by artificial rupture of membranes for clear fluid. She had an epidural catheter placed for analgesia at the active phase of labor and progressed to complete where after she pushed to a normal spontaneous vaginal delivery of a viable 7 pound 6 ounce baby boy with Apgars of 9 at 1 minute and 9 at 5 minutes. Her course was unremarkable with vital signs remaining stable and her temperature was afebrile throughout. She was deemed stable for discharge on day #1 and was discharged home to follow-up in the office in 6 weeks routinely. Discharge instructions included calling for any significantly increased bleeding or foul-smelling lochia, significantly increased fever or abdominal pain, perineal complaints, breast complaints, or anything else that concerned her. She was additionally instructed to have nothing in the vagina for at least 6 weeks time to include intercourse. She understood her instructions and agrees to follow-up as noted above. Discharge medications included continued vitamins as she has opted to breast-feed. She was otherwise to use ryxa-zzn-jakilep analgesic pain medications as needed. Maternal blood type is A+ and rubella status is immune. Procedures: #1. Pitocin induction #2. Epidural analgesia #3. Normal spontaneous vaginal delivery Patient Condition at Discharge: Stable Plan - Discharge Summary Follow up Appointment(s)/Referral(s): Dale Merrill MD [STAFF PHYSICIAN] - 04/08/25 11:15 am Discharge Disposition: HOME SELF-CARE
[2025-02-25 12:54] VITALS: RESP 18
[2025-02-25 15:37] VITALS: BP 103/70; PULSE 87; TEMP 97.6
== END 2025-02-25 16:54 | disposition home or self-care (01) | DRG 807 ==
LOC: 4FBP 06:10
PROVIDERS: ADMIT Obstetrics & Gynecology; ATTEND Obstetrics & Gynecology
PROC: 10E0XZZ Delivery of Products of Conception, External Approach (ICD-10-PCS; principal; 2025-02-24)
PROC: 3E033VJ Introduction of Other Hormone into Peripheral Vein, Percutaneous Approach (ICD-10-PCS; principal; 2025-02-24)
DX: O69.81X0 Labor and delivery complicated by cord around neck, without compression, not applicable or unspecified (principal); Z37.0 Single live birth; Z28.21 Immunization not carried out because of patient refusal; Z28.310 Unvaccinated for COVID-19; Z3A.39 39 weeks gestation of pregnancy; Z88.0 Allergy status to penicillin; Z88.8 Allergy status to other drugs, medicaments and biological substances
CPT/HCPCS: 85025; 86850; 86900; 86901

== ENCOUNTER → 2025-05-08 | Outpatient (CLI) | payer BC ==
[2025-05-08 19:22] LABS: Basophils # (A) 0.03 X 10*3/uL (0.00-0.10); Basophils % (A) 0.4 %; Eosinophils # (A) 0.78 X 10*3/uL (0.04-0.35); Eosinophils % (A) 9.7 %; HCT 39.2 % (37.2-46.3); HGB 12.3 g/dL (12.0-15.0); Lymphocytes # (A) 2.15 X 10*3/uL (0.90-5.00); Lymphocytes % (A) 26.7 %; MCH 25.9 pg (27.0-32.0); MCHC 31.4 g/dL (32.0-37.0); MCV 82.7 FL (80.0-97.0); Mean Platelet Volume 10.9 FL (9.5-12.2); Monocytes # (A) 0.54 X 10*3/uL (0.20-1.00); Monocytes % (A) 6.7 %; NRBC Per 100 WBC 0 X 10*3/uL (0.00-0.01); Neutrophils # (A) 4.53 X 10*3/uL (1.80-7.70); Neutrophils % (A) 56.3 %; Platelet Count 255 X 10*3/uL (140-440); RBC 4.74 X 10*6/uL (4.10-5.20); WBC 8.05 X 10*3/uL (4.50-10.00)
== END | disposition home or self-care (01) ==
LOC: LABPAT 11:47
PROVIDERS: ATTEND Obstetrics & Gynecology
DX: Z01.812 Encounter for preprocedural laboratory examination (principal)
CPT/HCPCS: 85025

== ENCOUNTER 2025-05-12 09:10 | Day surgery (SDC) | payer BC ==
[2025-05-07 11:06] VITALS: BMI 31.1
[~2025-05-12 09:10] MED LIST: Pre Op ABX Message 1 EACH MISC MISCELLANE ONE
[2025-05-12] MEDS: IV FLUID CONTINUATION 1,000 ML IV ONE (09:30)
[2025-05-12] MEDS ORDERED: diphenhydrAMINE 50 MG/ML 1 ML VIAL IVP PRN (09:43)
[2025-05-12] MEDS ORDERED: SIMETHICONE 80 MG CHEWABLE PO PRN (09:43)
[2025-05-12] MEDS ORDERED: ONDANSETRON 4 MG/2 ML VIAL IVP PRN (09:43)
[2025-05-12] MEDS ORDERED: diphenhydrAMINE 25 MG CAP PO PRN (09:43)
[2025-05-12] MEDS ORDERED: IBUPROFEN 600 MG TAB PO PRN (09:43)
[2025-05-12] MEDS ORDERED: KETOROLAC 15 MG/ML 1 ML VIAL IVP PRN (09:43)
[2025-05-12] MEDS ORDERED: ACETAMINOPHEN TAB 325 MG TAB PO PRN (09:43)
[2025-05-12] MEDS ORDERED: LACTATED RINGERS 1,000 ML IV SCH (09:45)
[2025-05-12] MEDS: ONDANSETRON 4 MG/2 ML VIAL IVP STA (09:48)
[2025-05-12] MEDS: DEXAMETHASONE SOD PHOSPHATE 4 MG/ML 1 ML VIAL IVP STA (09:49)
[2025-05-12] MEDS: FAMOTIDINE 20 MG/2 ML VIAL IV STA (09:49)
[2025-05-12] MEDS: LACTATED RINGERS 1,000 ML BAG IV STA (09:54)
[2025-05-12] MEDS: BUPIVACAINE (PF) 0.5% 30 ML VIAL SQ ONE ×2 (10:22→11:26)
[2025-05-12] MEDS ORDERED: fentaNYL (PF) 50 MCG/ML 2 ML AMP ONE (10:50)
[2025-05-12] MEDS ORDERED: ROCURONIUM 10 MG/ML (5 ML VIAL) IV ONE (10:50)
[2025-05-12] MEDS ORDERED: NEOSTIGMINE 1 MG/ML 10 ML VIAL ONE (10:50)
[2025-05-12] MEDS ORDERED: LIDOCAINE 1% INJ 10MG/ML (20 ML MDV) ONE (10:50)
[2025-05-12] MEDS ORDERED: KETOROLAC 15 MG/ML 1 ML VIAL ONE (10:50)
[2025-05-12] MEDS ORDERED: PROPOFOL 10 MG/ML 20 ML VIAL IV ONE (10:50)
[2025-05-12] MEDS ORDERED: GLYCOPYRROLATE 0.2 MG/ML 2 ML VIAL ONE (10:50)
[2025-05-12] MEDS ORDERED: SUCCINYLCHOLINE CHLORIDE 200 MG/10 ML VIAL IV ONE (10:50)
--- NOTE | 2025-05-12 11:35 | P.OP ---
Date of Procedure: 05/12/25 Preoperative Diagnosis: #1. Multiparity #2. Undesired fertility Postoperative Diagnosis: Same Procedure(s) Performed: #1. Laparoscopic bilateral salpingectomy Anesthesia: PRADEEP Surgeon: Dale Merrill Estimated Blood Loss (ml): 5 IV fluids (ml): 500 Urine output (ml): 50 Pathology: other (Bilateral fallopian tubes, single specimen) Condition: stable Disposition: PACU Operative Findings: Preoperative pelvic examination demonstrated a 4 to 5 weeks anteverted mobile normal shaped uterus with normal adnexa bilaterally. Intraoperatively, these findings were confirmed though the uterus did appear somewhat boggy consistent with status. The uterus, tubes, and ovaries were entirely normal. There was no evidence of any pathology in the pelvis to include endometriosis. The bilateral fallopian tubes were removed from their fimbriated end to the cornual insertion and sent to pathology in a single specimen cup. The upper abdomen appeared normal though I could not visualize the appendix. The small and large bowel as well as liver and diaphragm were normal in appearance. Description of Procedure: The patient was prepped and draped in usual fashion after general endotracheal anesthesia was administered by the anesthesiologist. The bladder was catheterized of approximately 50 mL of clear grecia urine. A speculum was placed in the anterior lip of the cervix grasped with a single-tooth tenaculum allowing placement of an acorn cannula for manipulation during surgery. Attention was then turned to the abdomen where a 5 mm incision was made in a similar fashion at the base of the umbilicus allowing insertion of a 5 mm optical port under direct visualization without difficulty. A pneumoperitoneum was created. Trendelenburg positioning was utilized and the site was selected approximately 10 to 12 cm lateral to the optical port and 4 to 5 cm inferior in the left lower quadrant where an 5 mm incision was made and allowing insertion of a 5 mm optical trocar under direct visualization without difficulty. A mirroring port was placed in the right lower quadrant. The blunt probe was utilized to sweep bowel from the pelvis and the findings are as noted above. The probe was then set aside and a grasper utilized to grasp the left fallopian tube at the fimbriated end and elevated. This allowed removal of the entire fallopian tube from the fimbriated end to the cornua of the uterus using a LigaSure device. The tube was removed through the port without difficulty. The grasper was then transferred to the other side where a similar operation was carried out without difficulty and the entire tube removed with the LigaSure device. Hemostasis appeared to be excellent. The tube was again removed through the optical port and sent to pathology, both tubes in a single specimen cup. After ensuring no other pathology in the upper or lower abdomen, the instrumentation was removed and the pneumoperitoneum entirely evacuated through the ports. The ports were then removed and the skin incisions closed with interrupted subcuticular stitches of 4-0 Monocryl followed by half-inch Steri-Strips placed with Mastisol. The incisions were infused with a total of 10 mL of half percent Marcaine without epinephrine, equally divided between the 3 incisions. Estimated blood loss for the case was 5 mL or less. There were no complications. All sponge, instrument, and needle counts were correct. The patient tolerated the procedure well and proceeded to the recovery room in stable condition.
[2025-05-12 11:48] VITALS: TEMP 97
[2025-05-12] MEDS: HYDROmorphone 0.5 MG/0.5 ML SYRINGE IVP STA (12:08)
[2025-05-12 13:23] VITALS: BP 100/64; PULSE 68; RESP 18
== END 2025-05-12 13:54 | disposition home or self-care (01) ==
LOC: OR 09:10
PROVIDERS: ATTEND Obstetrics & Gynecology
DX: Z30.2 Encounter for sterilization (principal); Z64.1 Problems related to multiparity
CPT/HCPCS: 81025; 58661; J0330; J1100; J2710; J2405; J2003; J3010; J1885; J2704; J1171; J0665; J1596; J1308